=== PATIENT | male | born 1995 | race Two or more races ===

== ENCOUNTER 2021-02-13 14:44 | Emergency (ER) | payer MEDICAID, OTHER ==
[~2021-02-13] VITALS: Ht 190.5 cm; Wt 131.5 kg
[2021-02-13] MEDS ORDERED: SODIUM CHLORIDE 0.9% 1,000 ML IV ONE ×2 (15:15)
[2021-02-13 16:26] LABS: Basophils # (auto) 0 10 ^3/uL (0-0.2); Basophils % (auto) 0.2 % (0.0-2.0); Eosinophils # (auto) 0.1 10 ^3/uL (0-0.8); Eosinophils % (auto) 0.5 % (0.0-7.0); Hematocrit 47.2 % (41.0-53.0); Hemoglobin 16.7 g/dL (13.5-17.5); Lymphocytes # (auto) 1.2 10 ^3/uL (0.4-5.4); Lymphocytes % (auto) 9.1 % (10.0-50.0); Mean Corpuscular Hemoglobin 29.8 pg (28.0-32.0); Mean Corpuscular Hgb Conc. 35.3 g/dL (32.0-36.0); Mean Corpuscular Volume 84.5 fL (80.0-100.0); Monocytes # (auto) 0.5 10 ^3/uL (0-1.3); Monocytes % (auto) 3.7 % (0.0-12.0); Neutrophils # (auto) 11.3 10 ^3/uL (1.6-8.6); Neutrophils % (auto) 86.5 % (37.0-80.0); Nucleated Red Blood Cells % 0.9 %; Platelet Count (auto) 230 10^3/uL (140-450); Red Blood Cells 5.59 10^6/uL (4.5-5.90); Red Cell Distribution Width 13.6 % (11.8-14.3); White Blood Cell 13.1 10^3/uL (4.4-10.8)
[2021-02-13 16:47] LABS: Anion Gap 16 (5-15); Blood Urea Nitrogen 11 mg/dL (7-18); Calcium 9.6 mg/dL (8.5-10.1); Carbon Dioxide 15 mmol/L (21-32); Chloride 109 mmol/L (98-107); Glucose 149 mg/dL (74-106); Potassium 3.7 mmol/L (3.5-5.1); Sodium 140 mmol/L (136-145)
[2021-02-13 16:54] LABS: Alanine Aminotransferase 25 U/L (16-61); Alkaline Phosphatase 73 U/L (45-117); Aspartate Aminotransferase 23 U/L (15-37); Bilirubin, Total 0.7 mg/dL (0.2-1.0); GFR African American 92 mL/min; GFR Non-African American 76 mL/min; Total Protein 8.4 g/dL (6.4-8.2)
[2021-02-13] MEDS ORDERED: HYDROcodone-ACET 10/325MG TAB PO ONE (17:00)
[2021-02-13 17:15] VITALS: BP 111/60
== END 2021-02-13 17:58 | disposition home or self-care (01) ==
LOC: ER 14:44 → EDBD 14:44 → ER 17:58
DX: R42 Dizziness and giddiness (principal); R07.9 Chest pain, unspecified; E86.0 Dehydration; D72.829 Elevated white blood cell count, unspecified; F17.210 Nicotine dependence, cigarettes, uncomplicated; F12.10 Cannabis abuse, uncomplicated; Z88.6 Allergy status to analgesic agent
CPT/HCPCS: 36415; 70450; 71045; 74176; 80053; 80320; 83735; 84484; 85025; 96360; 96361; 99285; J7030